=== PATIENT | male | born 1935 | race Caucasian/White ===

== ENCOUNTER → 2019-05-16 | Outpatient (CLI) | payer MEDICARE, BC ==
[2015-07-15 11:58] VITALS: BP 161/76
[~2019-05-16] MED LIST: ALLO300T PO; BISO1TAB82 PO; METH2.5T PO
--- NOTE | 2019-05-16 11:56 | RAD ---
CT scan of the chest without contrast 05/16/2019 CLINICAL HISTORY: Idiopathic interstitial pneumonitis. TECHNIQUE: Unenhanced, contiguous, 3 mm axial sections were obtained through the chest and upper abdomen. One or more of the following individualized dose reduction techniques were utilized for this study: 1. Automated exposure control. 2. Adjustment of the mA and/or kV according to patient size. 3. Use of iterative reconstruction technique. FINDINGS: The heart is normal in size. Atherosclerotic calcification of the thoracic aorta and its branches is noted. The thoracic aorta is tortuous but tapers normally.Mitral annular calcifications are seen. Small calcified mediastinal lymph nodes are noted. No hilar, mediastinal or axillary lymphadenopathy is seen. Small calcified granulomas are seen scattered throughout both lungs. No area of consolidation is noted. Dependent subsegmental atelectasis is seen involving both lower lobes. No pneumothorax or pleural effusion is seen. Very mild bronchiectasis is seen involving both lower lobes. No area of significant honeycombing is seen. Linear subpleural reticular opacities are seen scattered throughout both lungs. This appears to be slightly more prominent within the lung bases. These findings are not entirely specific but could reflect UIP. Images through the upper abdomen demonstrate multiple diverticula involving the visualized transverse colon. Atherosclerotic calcification of the abdominal aorta is noted. Degenerative changes are seen throughout the thoracic spine. IMPRESSION: Very mild bronchiectasis is seen involving both lungs. No area of significant honeycombing is seen. Linear subpleural reticular opacities are seen scattered throughout both lungs as discussed above. These findings are not entirely specific but could reflect UIP. Electronically signed by: Mik Peralta MD (05/16/2019 11:54 AM) [id number]
== END | disposition home or self-care (01) ==
LOC: CT 10:44
PROVIDERS: ATTEND Family Medicine
DX: J84.10 Pulmonary fibrosis, unspecified (principal); J84.113 Idiopathic non-specific interstitial pneumonitis; J47.9 Bronchiectasis, uncomplicated; J98.11 Atelectasis; I25.10 Atherosclerotic heart disease of native coronary artery without angina pectoris
CPT/HCPCS: 71250

== ENCOUNTER → 2019-11-19 | Outpatient (CLI) | payer MEDICARE, BC ==
[2015-07-15 11:58] VITALS: BP 161/76
--- NOTE | 2019-11-19 17:31 | RAD ---
EXAM: CT Chest without IV contrast INDICATION: Reason: IDIOPATHIC NON SPECIFIC INTERSTITIAL PNEUMONITIS / Spl. Instructions: / History: TECHNIQUE: Multi-detector row CT images were acquired from the thoracic inlet through the upper abdomen without the use of IV contrast. Sagittal and coronal images were acquired from the transaxial data. All CT scans performed at this facility utilize dose optimization techniques as appropriate to the exam, including the following: Automated exposure control and adjustment of the mA and/or KV according to patient size (this includes techniques or standardized protocols for targeted exams where dose is indication/reason for exam). COMPARISON: None FINDINGS: The absence of IV contrast limits evaluation of soft tissue pathology. CARDIOVASCULAR: Unremarkable MEDIASTINUM & ALEXANDRO: No adenopathy or masses. LUNGS: Fine subpleural reticular densities with interlobular septal thickening are again evident without honeycombing or significant architectural distortion. Also, tiny scattered punctate calcifications are present in the lungs bilaterally, similar to prior. Minimal bronchiectatic changes are present in the bilateral lower lobes. PLEURAL SPACE: No pleural effusions or pneumothorax. OSSEOUS & SOFT TISSUE: Bones are diffusely demineralized and show varying degrees of osseous fusion across the discs with coursing trabeculation in a pattern suggesting metabolic bone disease such as ankylosing spondylitis. ABDOMEN: Included upper abdomen shows nonspecific bilateral perirenal soft tissue stranding and dense calcifications in the abdominal aorta. IMPRESSION: Overall similar findings of subpleural reticular densities and mild bronchiectasis, compatible with the provided history of a nonspecific interstitial pneumonitis. No significant interval progression appreciated. Electronically signed by: Fe Unger MD (11/19/2019 5:28 PM) [id number]
== END | disposition home or self-care (01) ==
LOC: CT 10:28
PROVIDERS: ATTEND Family Medicine
DX: J84.113 Idiopathic non-specific interstitial pneumonitis (principal); J98.4 Other disorders of lung; J47.9 Bronchiectasis, uncomplicated; M81.8 Other osteoporosis without current pathological fracture; I70.0 Atherosclerosis of aorta
CPT/HCPCS: 71250

== ENCOUNTER → 2019-12-11 | Outpatient (CLI) | payer MEDICARE, BC ==
[2015-07-15 11:58] VITALS: BP 161/76
[~2019-12-11] MED LIST changes: +FOLI0.8C PO
== END ==
LOC: LAB 13:51
PROVIDERS: ATTEND Nurse Anesthetist, Certified Registered
DX: Z01.812 Encounter for preprocedural laboratory examination (principal); Z85.038 Personal history of other malignant neoplasm of large intestine; Z20.828 Contact with and (suspected) exposure to other viral communicable diseases
CPT/HCPCS: U0003-CS

== ENCOUNTER → 2019-12-14 | Day surgery (SDC) | payer MEDICARE, BC ==
[~2019-12-14] MED LIST changes: +IV RINGERS SOLUTION,LACTATED 1,000 ML IV SCH; +PROPOFOL 10,000 MCG/ML (20ML) VIAL IV ONE
[2019-12-14 13:15] VITALS: BP 129/60
== END | disposition home or self-care (01) ==
LOC: SURG 10:34
PROVIDERS: ATTEND Internal Medicine Gastroenterology
DX: Z08 Encounter for follow-up examination after completed treatment for malignant neoplasm (principal); K57.30 Diverticulosis of large intestine without perforation or abscess without bleeding; K64.8 Other hemorrhoids; M81.0 Age-related osteoporosis without current pathological fracture; J44.9 Chronic obstructive pulmonary disease, unspecified; M19.90 Unspecified osteoarthritis, unspecified site; Z85.038 Personal history of other malignant neoplasm of large intestine; Z79.899 Other long term (current) drug therapy; Z88.0 Allergy status to penicillin; Z88.8 Allergy status to other drugs, medicaments and biological substances; Z86.010 Personal history of colon polyps; Z98.890 Other specified postprocedural states; Z87.891 Personal history of nicotine dependence
CPT/HCPCS: 45378; J2704; J7120

== ENCOUNTER → 2020-04-14 | Outpatient (CLI) | payer MEDICARE, BC ==
[2019-12-14 13:15] VITALS: BP 129/60
[~2020-04-14] MED LIST changes: -IV RINGERS SOLUTION,LACTATED 1,000 ML IV SCH; -PROPOFOL 10,000 MCG/ML (20ML) VIAL IV ONE
== END ==
LOC: LAB 11:24
PROVIDERS: ATTEND Nurse Anesthetist, Certified Registered
DX: Z01.812 Encounter for preprocedural laboratory examination (principal); Z20.822 Contact with and (suspected) exposure to COVID-19; H26.9 Unspecified cataract
CPT/HCPCS: U0003

== ENCOUNTER → 2020-04-17 | Day surgery (SDC) | payer MEDICARE, BC ==
[~2020-04-17] MED LIST changes: +ACETAMINOPHEN 500 MG TABLET PO PRN; +BALANCED SALT IRRIG SOLN NO.2 500 ML IO ONE; +BENZONATATE 100 MG CAPSULE. PO PRN; +BRIMONIDINE 0.2% OPHTH SOLUTION 5ML BOTTLE. OS ONE; +CEFUROXIME OPHTH 4 MG/0.4 ML SYRINGE. OS ONE; +CHONDROIT-SOD-HYALURONATE KIT. OS ONE; +IPRATRPIUM/ALBUTEROL 0.5/2.5MG 3 ML NEBU. NEB PRN; +IV RINGERS SOLUTION,LACTATED 1,000 ML IV SCH; +LIDO/EPI IN BSS OPHTH 2.7 ML SYRINGE. OS ONE; +LIDOCAINE 2% JELLY 6ML IN APPLICATOR. TP ONE; +MIDAZOLAM HCL PF 2 MG/2 ML VIAL. IV ONE; +MIDAZOLAM HCL PF 2 MG/2 ML VIAL. ONE; +ONDANSETRON PF 4 MG/2 ML VIAL. IV PRN; +PHENYLEPHRINE 10% OPHTH SOLUTION 5ML BOTTLE. OS PRN; +POVIDONE-IODINE 5% OPHTH SOLUTION 30ML BOTTLE. OS ONE; +POVIDONE-IODINE 5% OPHTH SOLUTION 30ML BOTTLE. OS PRN; +PROPARACAINE 0.5% OPHTH SOLUTION 15ML BOTTLE. OS ONE; +PROPARACAINE 0.5% OPHTH SOLUTION 15ML BOTTLE. OS PRN; +prednisoLONE ACETATE 1% OPHTH SUSPENSION 5ML BOTTLE. OS ONE
[2020-04-17] MEDS: PHENYLEPHRINE 2.5% OPHTH SOLUTION 2ML BOTTLE. OS SCH ×3 (10:56→11:09)
[2020-04-17] MEDS: TROPICAMIDE 1% OPHTH SOLUTION 15ML BOTTLE. OS SCH ×3 (10:56→11:09)
[2020-04-17] MEDS: KETOROLAC TROMETHAMINE 0.5% OPHTH SOLUTION BOTTLE. OS SCH ×2 (10:56→11:04)
[2020-04-17] MEDS: TOBRAMYCIN 0.3% OPHTH SOLUTION 5ML BOTTLE. OS SCH ×2 (10:56→11:04)
--- NOTE | 2020-04-17 12:13 | PDOC4 ---
SURGEON: Thomas Oreilly MD Date of Procedure: 04/17/20 PREOP Diagnosis Visually significant cataract: Left Eye OS POSTOP Diagnosis Same PROCEDURE: Phaco w/ posterior chamber IOL: Left Eye OS ANESTHESIA Deep forniceal periocular 2% Lidocaine jelly [place]/retro bulbar block with 2% Lidocaine with 0.5% Marcaine DESCRIPTION OF PROCEDURE The risks, benefits, and alternatives were discussed with the patient who elected to proceed. Informed consent was obtained in writing and placed in the chart After anesthetizing the eye topically, the patient was taken to the operating room, and the operative eye was prepped and draped in the usual sterile fashion for ocular surgery. A wire lid speculum was placed. A 1-mm clear corneal paracentesis incision was created with the side-port blade at a position three o'clock hours clockwise from the temporal cornea. Then, 1% non-preserved Lidocaine with epinephrine was injected into the anterior chamber followed by viscoelastic. Cotton-tipped applicators were used to stabilize the globe, and a 2.4 mm keratome was used to create a self-sealing incision in clear cornea at the temporal limbus. The Utrata forceps were used to create a continuous curvilinear capsulorrhexis. Balanced saline solution was injected via cannula beneath the capsulorrhexis edge to hydrodissect the lens nucleus and cortex from the lens capsule. The phacoemulsification handpiece and a chopping instrument were then used to remove the lens nucleus. The remaining epinuclear material and cortex were removed with the irrigation/aspiration handpiece. Vis coelastic was used to re-inflate the lens capsule, and the intraocular lens was injected directly into the capsular bag. The corneal wound edges were hydrated with balanced salt solution on a cannula and the irrigation/aspiration handpiece was used to extract the remaining viscoelastic. Cefuroxime 0.1mg/ml / Vigamox 0.5% was injected into the anterior chamber intracamerally. The wounds were inspected and found to be watertight at an appropriate intraocular pressure. Topical antibiotic drops were placed on the corneal surface. LRI: No If Yes, Number [] [place] [] Length [] degrees Depth [] microns Incision [place]: 180 Toric Lens [place] [] Patch/shield with Maxitrol/Tobradex/Erythromycin ointment: Yes No Co-managed patients/postop examination stable for co-management with referring doctor. THOMAS OREILLY MD Apr 17, 2020 12:13
[2020-04-17 12:23] VITALS: BP 141/66
== END | disposition home or self-care (01) ==
LOC: SURG 10:16
PROVIDERS: ATTEND Ophthalmology
DX: H25.12 Age-related nuclear cataract, left eye (principal); J44.9 Chronic obstructive pulmonary disease, unspecified; I10 Essential (primary) hypertension; E66.9 Obesity, unspecified; M81.8 Other osteoporosis without current pathological fracture; I25.10 Atherosclerotic heart disease of native coronary artery without angina pectoris; M19.90 Unspecified osteoarthritis, unspecified site; Z87.891 Personal history of nicotine dependence; Z85.828 Personal history of other malignant neoplasm of skin; Z85.038 Personal history of other malignant neoplasm of large intestine; Z86.010 Personal history of colon polyps; Z88.8 Allergy status to other drugs, medicaments and biological substances; Z88.0 Allergy status to penicillin; Z79.899 Other long term (current) drug therapy; Z98.890 Other specified postprocedural states
CPT/HCPCS: 66984; J2250; V2632